=== PATIENT | female | born 1980 | race Caucasian/White ===

== ENCOUNTER 2016-10-19 11:25 | Inpatient (IN) | payer SELFPAY ==
[~2016-10-19] VITALS: Ht 167.6 cm; Wt 78.1 kg
--- NOTE | ~2016-10-19 | NDGEN ---
[facility] AGE: 36 Y [address] ROOM: [place] [address] LOCATION: [facility] ADMIT DATE: 10/19/2016 Neurodiagnostics DISCHARGE DATE: FAMILY PHYSICIAN: PHYSICIAN, UNKNOWN ATTENDING PHYSICIAN: MIRIAN NICOLAS PROCEDURE: ELECTROENCEPHALOGRAM DATE OF PROCEDURE: 10/20/2016 CLINICAL DIAGNOSIS: TIME: 12:47 p.m. INDICATIONS: This is a 36-year-old female patient who was found down with cardiac arrest post CPR and has remained unresponsive with no meaningful movement of her limbs, and she presented with signs of anoxia post cardiac arrest including excessive amounts of myoclonic jerking. She was placed on antiseizure medications at the time of this EEG for a possibility of any background seizure activity. The patient remains unresponsive to pain and has no spontaneous limb movements. Currently, she does have reflex posturing of her upper extremities and is believed to have whole-brain anoxic injury. DESCRIPTION: The general background rhythm displays evidence for burst suppression pattern. The bursts occurring approximately with high amplitude burst rhythm. Rhythms occurring every 3 seconds or approximately in that range. Interburst periods would last for approximately 3 seconds as well. Often, these interburst periods would show high amplitude rhythmic activity which would last up to 3-5 seconds. This interburst suppression pattern would remain constant throughout the whole recording and was unaffected by photic stimulation. The interburst pattern showed somewhat of a rhythm of up to 6 hertz which was considered slow for the patient's age. There did appear to be rhythmic spikes that were seen at different periods of the recording, seemed to be likely epileptiform and a phase reversal around the high central leads did not have a particular pattern throughout the recording. IMPRESSION: This is a grossly abnormal electroencephalogram with burst suppression patterns with sometimes interburst pattern that would last for upwards of 6-20 seconds, these may be consistent with seizures in the background, may be a postictal phenomena in general. The findings and anoxic brain injury would be consistent with the EEG noted today, would be wholly consistent with the patient having whole brain anoxia. [facility] AGE: 36 Y [address] ROOM: [place] [id number] LOCATION: [facility] ADMIT DATE: 10/19/2016 Neurodiagnostics DISCHARGE DATE: FAMILY PHYSICIAN: PHYSICIAN, UNKNOWN ATTENDING PHYSICIAN: MIRIAN NICOLAS MD NIKOLAS SMILEY/becca /[id number] dtt: 10/23/16 1405 , GABI MARTINEZ dtd: 10/20/16 1947
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
--- NOTE | ~2016-10-19 | CON ---
PATIENT'S NAME: VIOLETTE [facility] AGE: 36 Y [address] ROOM: [place] [address] LOCATION: [facility] ADMIT DATE: 10/19/2016 Consultation DISCHARGE DATE: FAMILY PHYSICIAN: PHYSICIAN, UNKNOWN ATTENDING PHYSICIAN: MIRIAN NICOLAS REFERRING PHYSICIAN: GABI MARTINEZ MD REFERRING: Hospitalist Service. REASON FOR REFERRAL: Ventilator management. HISTORY OF PRESENT ILLNESS: The patient is a 36-year-old woman who came in as a cardiac arrest. Apparently, she had multiple illicit substances in her bloodstream. Details regarding the arrest are not clear, but she was down for estimated 30 minutes. PAST MEDICAL HISTORY: Please refer to the admission history and physical exam. I am unable to valadez any more than that. FAMILY HISTORY: Unobtainable. SOCIAL HISTORY: Unobtainable. REVIEW OF SYSTEMS: Unobtainable. PHYSICAL EXAMINATION: NEUROLOGIC: She is intermittently jerking in a pattern consistent with myoclonus. She is unconscious. ASSESSMENT: Cardiac arrest, probably drug related. PLAN: Vent settings appear appropriate. She is unlikely to recover from this; however, time will be required before that conclusion can be absolutely reached. We will follow with you. PATIENT'S NAME: VIOLETTE [facility] AGE: 36 Y [address] ROOM: [place] [address] LOCATION: [facility] ADMIT DATE: 10/19/2016 Consultation DISCHARGE DATE: FAMILY PHYSICIAN: PHYSICIAN, UNKNOWN ATTENDING PHYSICIAN: MIRIAN NICOLAS MD DEC/modl /[id number] d: 10/19/166 t: 10/24/16 0838, CONSULTATION REPORT
[2016-10-19 11:39] LABS: HEMATOCRIT 39.9 % (33.0-46.0); HEMOGLOBIN 12.6 g/dL (11.0-15.0); MCH 27.3 pg (27.0-34.0); MCHC 31.6 gm/dL (32.0-36.5); MCV 86.4 fl (83.0-98.0); MPV 8.8 fl (9.4-12.4); PLATELET COUNT 322 K/uL (150-450); RBC 4.62 M/uL (3.50-5.50); RDW-CV 14.5 % (11.9-14.6)
[2016-10-19 11:47] LABS: INR - (THERAPEUTIC) 1.31 (0.92-1.07); PROTIME 13.8 SECONDS (9.8-11.4); PTT 26 SECONDS (25-32)
[2016-10-19 11:49] LABS: WBC 16.9 K/uL (4.0-11.0)
[2016-10-19 12:02] LABS: ALBUMIN 3.4 gm/dL (3.5-5.0); ALK PHOS 117 IU/L (33-138); ALT 221 IU/L (12-78); ANION GAP 21.2 (10.0-19.0); AST 208 IU/L (10-40); BLOOD UREA NITROGEN 12 mg/dL (6-24); CALCIUM 8.1 mg/dL (8.5-10.5); CHLORIDE 108 mMol/L (96-110); CO2 18 mMol/L (22-32); CPK 156 IU/L (21-215); CREATININE 1.2 mg/dL (0.5-1.1); ESTIMATED GFR (MDRD EQUATION) 51; MAGNESIUM 2.4 mg/dL (1.8-2.6); POTASSIUM 4.2 mMol/L (3.7-5.1); SODIUM 143 mMol/L (135-145); TOTAL BILIRUBIN 0.3 mg/dL (0.0-1.5)
[2016-10-19 12:33] LABS: BICARBONATE 21.1 mmol/L (18.0-23.0); PCO2 47 mmHg (35-45); PO2 155 mmHg (80-90)
[2016-10-19 12:36] LABS: ABSOLUTE NEUTROPHIL CT (ANC) 11.8 K/uL (1.8-7.8); BANDED NEUTROPHIL # 1.5 K/uL (0.0-0.1); BANDED NEUTROPHILS % 9 %; LYMPHOCYTE # 4.6 K/uL (0.8-4.0); LYMPHOCYTE % 27 %; MONOCYTE # 0.5 K/uL (0.0-1.0); SEGMENTED NEUTROPHIL # 10.3 K/uL (1.8-7.8); SEGMENTED NEUTROPHIL % 61 %
[2016-10-19 12:45] LABS: BARBITURATE NEGATIVE (NEGATIVE); COCAINE NEGATIVE (NEGATIVE); OPIATES NEGATIVE (NEGATIVE)
[2016-10-19 12:46] LABS: AMPHETAMINE POSITIVE (NEGATIVE)
[2016-10-19] MEDS ORDERED: ESKALITH CR450 MG PO ×2 (14:33→14:34)
[2016-10-19] MEDS ORDERED: XANAX1 MG PO (14:33)
[2016-10-19] MEDS ORDERED: AMBIEN5 MG PO (14:34)
[2016-10-20 04:44] LABS: BASOPHIL % 0.1 %; HEMATOCRIT 40.7 % (33.0-46.0); IMMATURE GRANULOCYTE # 0.1 K/uL (0.0-0.3); IMMATURE GRANULOCYTE % 0.4 %; LYMPHOCYTE # 0.7 K/uL (0.8-4.0); MCH 27.2 pg (27.0-34.0); MCHC 31.9 gm/dL (32.0-36.5); MCV 85.1 fl (83.0-98.0); MONOCYTE # 1.9 K/uL (0.0-1.0); MONOCYTE % 8.4 %; MPV 8.6 fl (9.4-12.4); NEUTROPHIL % 88.1 %; NRBC % 0 /100WBC (0-0.00); PLATELET COUNT 291 K/uL (150-450); RBC 4.78 M/uL (3.50-5.50)
[2016-10-20 04:49] LABS: WBC 22.7 K/uL (4.0-11.0)
[2016-10-20 04:54] LABS: INR - (THERAPEUTIC) 1.47 (0.92-1.07); PROTIME 15.5 SECONDS (9.8-11.4)
[2016-10-20 05:00] LABS: ALBUMIN 3.4 gm/dL (3.5-5.0); CALCIUM 8.2 mg/dL (8.5-10.5); CREATININE 1.1 mg/dL (0.5-1.1); MAGNESIUM 1.8 mg/dL (1.8-2.6); PHOSPHORUS 2.6 mg/dL (2.5-4.9); POTASSIUM 3.8 mMol/L (3.7-5.1); TOTAL PROTEIN 6.6 g/dL (6.0-8.4)
[2016-10-20 05:02] LABS: ANION GAP 14.8 (10.0-19.0); TOTAL BILIRUBIN 0.5 mg/dL (0.0-1.5)
[2016-10-20 12:20] LABS: BILIRUBIN URINE NEGATIVE (NEGATIVE); BLOOD URINE 25 /UL (NEGATIVE); GLUCOSE URINE NEGATIVE (NEGATIVE); KETONE URINE 50 mg/dL (NEGATIVE); LEUKOCYTES URINE NEGATIVE /UL (NEGATIVE); NITRITE URINE NEGATIVE (NEGATIVE); PROTEIN URINE 15 mg/dL (NEGATIVE); SPEC GRAVITY URINE 1.025 (1.003-1.035); UROBILINOGEN URINE NORMAL (NORMAL)
[2016-10-20 12:23] LABS: COLOR URINE YELLOW (YELLOW); TURBIDITY URINE 1+ (CLEAR)
[2016-10-20 12:33] LABS: BACTERIA URINE FEW (NEGATIVE); MUCUS URINE 3+ (NEGATIVE)
[2016-10-20 12:34] LABS: AMORPHOUS URINE 1+ (NEGATIVE)
[2016-10-20 12:35] LABS: EPITHELIAL URINE NEGATIVE #/HPF (NEGATIVE)
[2016-10-20 14:18] LABS: BICARBONATE 21.1 mmol/L (18.0-23.0); PCO2 29 mmHg (35-45); PO2 104 mmHg (80-90)
== END 2016-10-20 22:12 | disposition expired | DRG 296 ==
LOC: GMED 11:25 → GICU 13:14
PROVIDERS: Emergency Medicine; Internal Medicine; Internal Medicine Critical Care Medicine; ADMIT Hospitalist
PROC: 5A09357 Assistance with Respiratory Ventilation, Less than 24 Consecutive Hours, Continuous Positive Airway Pressure (ICD-10-PCS; principal; 2016-10-20)
DX: I46.9 Cardiac arrest, cause unspecified (principal); G93.6 Cerebral edema; J96.01 Acute respiratory failure with hypoxia; K72.00 Acute and subacute hepatic failure without coma; G93.1 Anoxic brain damage, not elsewhere classified; E72.20 Disorder of urea cycle metabolism, unspecified; N17.9 Acute kidney failure, unspecified; E87.2 Acidosis; F19.20 Other psychoactive substance dependence, uncomplicated; R40.2440 Other coma, without documented Glasgow coma scale score, or with partial score reported, unspecified time; T40.601A Poisoning by unspecified narcotics, accidental (unintentional), initial encounter; T42.4X1A Poisoning by benzodiazepines, accidental (unintentional), initial encounter; Z51.5 Encounter for palliative care; Z66 Do not resuscitate; G25.3 Myoclonus
CPT/HCPCS: G0480; J1165; J2060; J2250; J2270; J2310; J7030; J7040; Q9967

== ENCOUNTER → 2016-10-19 | Outpatient (CLI) | payer SELFPAY ==
[~2016-10-19] MED LIST: AMBIEN5 MG PO; ESKALITH CR450 MG PO; XANAX1 MG PO
== END | disposition disaster alternative care site (69) ==
LOC: GAIR 11:10
DX: I46.9 Cardiac arrest, cause unspecified (principal); R00.0 Tachycardia, unspecified
CPT/HCPCS: A0422; A0431; A0436